=== PATIENT | female | born 1970 | race African-American/Black ===

== ENCOUNTER 2021-08-24 14:53 | Inpatient (IN) | payer OTHER ==
[2021-08-24 17:43] VITALS: BMI 43.0
[2021-08-24] MEDS ORDERED: IBUPROFEN 400 MG TABLET (FP) PO PRN (17:49)
[2021-08-24] MEDS ORDERED: MENTHOL/PHENOL 1 EACH UD MM PRN (17:49)
[2021-08-24] MEDS ORDERED: ONDANSETRON *ODT* 4 MG TABLET SL PRN (17:49)
[2021-08-24] MEDS ORDERED: MAGNESIUM CITRATE 300 ML BOTTLE PO PRN (17:49)
[2021-08-24] MEDS ORDERED: BISMUTH SUBSALICYLATE 524 MG/30 ML PO PRN (17:49)
[2021-08-24] MEDS ORDERED: MAGNESIUM HYDROX 2400MG/30ML ORAL SUSPENSION 30 ML CUP PO PRN (17:49)
[2021-08-24] MEDS ORDERED: MAG HYDROX/AL HYDROX/SIMETH 30 ML UNIT-DOSE CUP PO PRN (17:49)
[2021-08-24] MEDS ORDERED: ACETAMINOPHEN 325 MG TABLET (FP) PO PRN ×2 (17:49)
[2021-08-24] MEDS: INSULIN SLIDING SCALE (NOVOLOG) 1 VIAL SQ SCH (19:46)
[2021-08-24] MEDS: THIAMINE HCL 100 MG TABLET (FP) PO SCH (21:44)
[2021-08-24] MEDS: MELATONIN 5 MG TABLETS PO SCH (21:46)
[2021-08-24] MEDS: diazePAM 5 MG TABLET PO SCH (22:58)
[2021-08-24] MEDS: PATIENT'S OWN MEDICATION (NON-FORMULARY) (Gabapentin [Gabapentin] 600 MG Tablet) PO SCH (23:00)
[2021-08-25] MEDS: PATIENT'S OWN MEDICATION (NON-FORMULARY) (Gabapentin [Gabapentin] 600 MG Tablet) PO SCH ×3 (05:46→23:04)
[2021-08-25] MEDS: diazePAM 5 MG TABLET PO SCH ×4 (05:50→22:31)
[2021-08-25] MEDS: INSULIN SLIDING SCALE (NOVOLOG) 1 VIAL SQ SCH ×2 (07:02→17:47)
[2021-08-25] MEDS: metFORMIN HCL 500 MG TABLET (FP) PO SCH ×2 (07:02→17:58)
[2021-08-25] MEDS: PRENATAL VITAMINS W/ FOLIC ACID TABLET (FP) PO SCH (10:19)
[2021-08-25] MEDS: METHOCARBAMOL 500 MG TABLET PO PRN ×2 (10:20→17:58)
[2021-08-25 11:19] LABS: CALCIUM 9.1 mg/dL (8.5-10.1)
[2021-08-25 11:20] LABS: ALBUMIN 3.2 g/dl (3.4-5.0)
[2021-08-25 11:23] LABS: CREATININE 0.6 mg/dL (0.55-1.3)
[2021-08-25 11:25] LABS: BILIRUBIN,TOTAL 0.8 mg/dL (0.2-1); TOT PROT 6.5 g/dl (6.4-8.2)
[2021-08-25 11:30] LABS: HEMATOCRIT 39.6 % (32.4-45.2); HEMOGLOBIN 12.7 GM/dL (10.7-15.3); MCHC 32.1 g/dl (32.0-36.0); MEAN CELL VOLUME 84.3 fl (80-96); PLATELET COUNT 255 10^3/uL (134-434); RDW 16.1 % (11.6-15.6); WHITE BLOOD COUNT 5.5 K/mm3 (4.0-10.0)
[2021-08-25] MEDS: MELATONIN 5 MG TABLETS PO SCH (22:30)
[2021-08-25] MEDS: THIAMINE HCL 100 MG TABLET (FP) PO SCH (22:30)
[2021-08-25] MEDS: DULoxetine HCL 20 MG CAPSULE.DR PO SCH (22:30)
[2021-08-25] MEDS: risperiDONE 2 MG TABLET PO SCH (22:30)
[2021-08-26] MEDS: METHOCARBAMOL 500 MG TABLET PO PRN ×3 (00:42→22:53)
[2021-08-26] MEDS: metFORMIN HCL 500 MG TABLET (FP) PO SCH ×2 (06:04→18:05)
[2021-08-26] MEDS: PATIENT'S OWN MEDICATION (NON-FORMULARY) (Gabapentin [Gabapentin] 600 MG Tablet) PO SCH ×3 (06:04→22:49)
[2021-08-26] MEDS: diazePAM 5 MG TABLET PO SCH ×3 (06:05→22:50)
[2021-08-26] MEDS: INSULIN SLIDING SCALE (NOVOLOG) 1 VIAL SQ SCH ×2 (06:15→18:06)
[2021-08-26] MEDS: PRENATAL VITAMINS W/ FOLIC ACID TABLET (FP) PO SCH (10:43)
[2021-08-26] MEDS: DULoxetine HCL 20 MG CAPSULE.DR PO SCH ×2 (10:43→22:50)
[2021-08-26] MEDS: diazePAM 5 MG TABLET PO PRN (10:44)
[2021-08-26] MEDS: risperiDONE 2 MG TABLET PO SCH (22:49)
[2021-08-26] MEDS: MELATONIN 5 MG TABLETS PO SCH (22:49)
[2021-08-26] MEDS: THIAMINE HCL 100 MG TABLET (FP) PO SCH (22:50)
[2021-08-27] MEDS: diazePAM 5 MG TABLET PO SCH ×2 (06:15→18:12)
[2021-08-27] MEDS: METHOCARBAMOL 500 MG TABLET PO PRN ×2 (06:16→22:24)
[2021-08-27] MEDS: PATIENT'S OWN MEDICATION (NON-FORMULARY) (Gabapentin [Gabapentin] 600 MG Tablet) PO SCH ×3 (06:16→22:23)
[2021-08-27] MEDS: metFORMIN HCL 500 MG TABLET (FP) PO SCH ×2 (07:11→18:12)
[2021-08-27] MEDS: INSULIN SLIDING SCALE (NOVOLOG) 1 VIAL SQ SCH ×2 (07:11→17:29)
[2021-08-27] MEDS: PRENATAL VITAMINS W/ FOLIC ACID TABLET (FP) PO SCH (10:23)
[2021-08-27] MEDS: DULoxetine HCL 20 MG CAPSULE.DR PO SCH ×2 (10:23→22:23)
[2021-08-27] MEDS: diazePAM 5 MG TABLET PO PRN (10:23)
[2021-08-27] MEDS: hydrOXYzine PAMOATE 25 MG CAPSULE (FP) PO PRN ×2 (10:24→22:24)
[2021-08-27] MEDS: THIAMINE HCL 100 MG TABLET (FP) PO SCH (22:23)
[2021-08-27] MEDS: MELATONIN 5 MG TABLETS PO SCH (22:23)
[2021-08-27] MEDS: risperiDONE 2 MG TABLET PO SCH (22:23)
[2021-08-28] MEDS: PATIENT'S OWN MEDICATION (NON-FORMULARY) (Gabapentin [Gabapentin] 600 MG Tablet) PO SCH ×3 (05:59→21:37)
[2021-08-28] MEDS ORDERED: diazePAM 5 MG TABLET PO ONE (06:00)
[2021-08-28] MEDS: hydrOXYzine PAMOATE 25 MG CAPSULE (FP) PO PRN ×2 (06:01→10:22)
[2021-08-28] MEDS: METHOCARBAMOL 500 MG TABLET PO PRN ×2 (06:02→21:37)
[2021-08-28] MEDS: metFORMIN HCL 500 MG TABLET (FP) PO SCH ×2 (06:12→18:06)
[2021-08-28] MEDS: INSULIN SLIDING SCALE (NOVOLOG) 1 VIAL SQ SCH ×2 (06:12→18:07)
[2021-08-28] MEDS: PRENATAL VITAMINS W/ FOLIC ACID TABLET (FP) PO SCH (10:21)
[2021-08-28] MEDS: DULoxetine HCL 20 MG CAPSULE.DR PO SCH ×2 (10:21→21:37)
[2021-08-28] MEDS: THIAMINE HCL 100 MG TABLET (FP) PO SCH (21:37)
[2021-08-28] MEDS: MELATONIN 5 MG TABLETS PO SCH (21:37)
[2021-08-28] MEDS: risperiDONE 2 MG TABLET PO SCH (21:37)
[2021-08-29] MEDS: metFORMIN HCL 500 MG TABLET (FP) PO SCH ×2 (06:55→17:44)
[2021-08-29] MEDS: PATIENT'S OWN MEDICATION (NON-FORMULARY) (Gabapentin [Gabapentin] 600 MG Tablet) PO SCH ×3 (06:56→22:27)
[2021-08-29] MEDS: INSULIN SLIDING SCALE (NOVOLOG) 1 VIAL SQ SCH ×2 (07:13→17:44)
[2021-08-29] MEDS: PRENATAL VITAMINS W/ FOLIC ACID TABLET (FP) PO SCH (10:22)
[2021-08-29] MEDS: DULoxetine HCL 20 MG CAPSULE.DR PO SCH ×2 (10:23→22:27)
[2021-08-29] MEDS: METHOCARBAMOL 500 MG TABLET PO PRN ×2 (14:35→22:27)
[2021-08-29] MEDS: THIAMINE HCL 100 MG TABLET (FP) PO SCH (22:27)
[2021-08-29] MEDS: risperiDONE 2 MG TABLET PO SCH (22:27)
[2021-08-29] MEDS: MELATONIN 5 MG TABLETS PO SCH (22:27)
[2021-08-30] MEDS: hydrOXYzine PAMOATE 25 MG CAPSULE (FP) PO PRN (05:54)
[2021-08-30] MEDS: METHOCARBAMOL 500 MG TABLET PO PRN (05:54)
[2021-08-30] MEDS: PATIENT'S OWN MEDICATION (NON-FORMULARY) (Gabapentin [Gabapentin] 600 MG Tablet) PO SCH (05:54)
[2021-08-30] MEDS: INSULIN SLIDING SCALE (NOVOLOG) 1 VIAL SQ SCH (06:06)
[2021-08-30] MEDS: metFORMIN HCL 500 MG TABLET (FP) PO SCH (06:06)
[2021-08-30 08:49] VITALS: BP 99/59; PULSE 95; TEMP 98.2
[2021-08-30] MEDS: PRENATAL VITAMINS W/ FOLIC ACID TABLET (FP) PO SCH (10:15)
[2021-08-30] MEDS: DULoxetine HCL 20 MG CAPSULE.DR PO SCH (10:15)
== END 2021-08-30 11:47 | disposition home or self-care (01) | DRG 775 ==
LOC: YASAS 14:53 → Y3N 19:47
PROVIDERS: ADMIT Allergy & Immunology; ATTEND Allergy & Immunology
PROC: HZ2ZZZZ Detoxification Services for Substance Abuse Treatment (ICD-10-PCS; principal; 2021-08-24)
DX: F10.230 Alcohol dependence with withdrawal, uncomplicated (principal); F17.210 Nicotine dependence, cigarettes, uncomplicated; F32.A Depression, unspecified; G62.9 Polyneuropathy, unspecified; E11.65 Type 2 diabetes mellitus with hyperglycemia; Z79.84 Long term (current) use of oral hypoglycemic drugs; E88.09 Other disorders of plasma-protein metabolism, not elsewhere classified; I10 Essential (primary) hypertension; J44.9 Chronic obstructive pulmonary disease, unspecified; E66.01 Morbid (severe) obesity due to excess calories; Z68.41 Body mass index [BMI] 40.0-44.9, adult; Z86.59 Personal history of other mental and behavioral disorders; Z99.89 Dependence on other enabling machines and devices; W07.XXXA Fall from chair, initial encounter; Y92.238 Other place in hospital as the place of occurrence of the external cause
CPT/HCPCS: 36415; 80053; 82962; 85027; 86780; C9803; U0003; U0005